=== PATIENT | female | born 1995 | race Caucasian/White ===

== ENCOUNTER 2022-08-12 01:53 | Emergency (ER) | payer OTHER ==
[~2022-08-12] VITALS: Ht 157.5 cm; Wt 97.1 kg
[2022-08-12 02:07] VITALS: BP 124/97
--- NOTE | 2022-08-12 02:07 | NUR ---
c/o 12/24 pain back pain x 1 day. pt states chronic back pain and takes gabapentin 100 mg, and naproxen 375 mg but currently ineffective. per pt, pmhx scoliosis, chronic migraines, anxiety, depression. allergy to toradol.
[2022-08-12] MEDS ORDERED: MORPHINE SULFATE 4 MG/ML SYR IM ONE (02:50)
[2022-08-12] MEDS ORDERED: NAPR-54 PO ×2 (04:26→04:34)
[2022-08-12 04:37] VITALS: BP 120/87
== END 2022-08-12 04:37 | disposition home or self-care (01) ==
LOC: EDBD 01:53 → MED 01:53
DX: M54.50 Low back pain, unspecified (principal); Z79.1 Long term (current) use of non-steroidal anti-inflammatories (NSAID); Z79.899 Other long term (current) drug therapy
CPT/HCPCS: 96372; 99283; J2270

== ENCOUNTER 2022-08-16 04:44 | Emergency (ER) | payer OTHER ==
[~2022-08-16] VITALS: Ht 157.5 cm; Wt 97.5 kg
[~2022-08-16 04:44] MED LIST: NAPR-54 PO
[2022-08-16 04:56] VITALS: BP 147/89
[2022-08-16 05:55] LABS: BASOPHILS # (AUTO) 0.1 K/uL (0.00-0.22); BASOPHILS % (AUTO) 0.7 % (0.0-2.0); EOSINOPHILS # (AUTO) 0.2 K/uL (0-0.4); EOSINOPHILS % (AUTO) 1.8 % (0.0-4.0); HEMATOCRIT 44.1 % (36-48); HEMOGLOBIN 14.5 g/dL (12.0-16.0); LYMPHOCYTES # (AUTO) 2.7 K/uL (2.5-16.5); LYMPHOCYTES % (AUTO) 30.2 % (20.5-51.1); MEAN CORPUSCULAR HEMOGLOBIN 27 pg (27-31); MEAN CORPUSCULAR HGB CONC 33 g/dL (33-37); MEAN CORPUSCULAR VOLUME 82.4 fL (80-94); MONOCYTES # (AUTO) 0.7 K/uL (0.8-1.0); MONOCYTES % (AUTO) 8.4 % (1.7-9.3); NEUTROPHILS # (AUTO) 5.2 K/uL (1.8-7.7); NEUTROPHILS % (AUTO) 58.9 % (42.2-75.2); PLATELET COUNT (AUTO) 273 K/uL (140-450); RED BLOOD CELL COUNT(AUTO) 5.35 MIL/uL (4.20-5.40); RED CELL DISTRIBUTION WIDTH 13.9 % (11.6-13.7); WHITE BLOOD COUNT (AUTO) 8.8 K/uL (4.8-10.8)
--- NOTE | 2022-08-16 06:15 | NUR ---
seen and examined by ken
[2022-08-16] MEDS ORDERED: KETOROLAC 30 MG/ML VIAL IM ONE (06:20)
[2022-08-16 06:28] LABS: ALBUMIN 3.8 g/dL (3.4-5.0); ANION GAP 12.9 (8-16); CARBON DIOXIDE 26.7 mmol/L (21-32); CREATININE 1.1 mg/dL (0.6-1.3); POTASSIUM 3.6 mmol/L (3.5-5.1); TOTAL BILIRUBIN 0.5 mg/dL (0.0-1.0)
[2022-08-16] MEDS ORDERED: CYCLOBENZAPRINE 10 MG TAB PO ONE (06:35)
[2022-08-16] MEDS ORDERED: IBUPROFEN 800 MG TAB PO ONE (06:35)
[2022-08-16] MEDS ORDERED: ACETAMINOPHEN EXTRA STRENGTH 500 MG TAB PO ONE (06:35)
--- NOTE | 2022-08-16 06:58 | NUR ---
26YR OLD FEMALE BIB FAMILY C/O CP XTODAY. PAIN UNPROVOKED / NON RADIATING PRESSURE LIKE PAIN. +SOB SP02 96% RA. DENIES N/V PT IS A&OX4 ON BEDSIDE RETAIL ATTENDANT TACHYCARDIAC 126. HX OF ANXIETY. HOB ELEVATED SKIN WARM AND DRY. KETOROLAC ANXIETY DEPRESSION
[2022-08-16] MEDS ORDERED: LORazepam 0.5 MG TAB PO ONE (07:20)
--- NOTE | 2022-08-16 07:20 | NUR ---
Report recieved from JOVANNY Mann for transfer of care.
[2022-08-16] MEDS ORDERED: CRUSHER, PILL MC ONE (07:40)
[2022-08-16] MEDS ORDERED: oxyCODONE/APAP 5/325 MG 1 TAB TAB PO ONE (08:00)
[2022-08-16] MEDS ORDERED: IBUP-2213 PO (08:31)
[2022-08-16] MEDS ORDERED: HYDR25CA1 PO (08:31)
--- NOTE | 2022-08-16 08:49 | NUR ---
PT DENIES HEART PALPITATIONS, REPORTS CHEST PRESSURE 8/10.
[2022-08-16] MEDS ORDERED: NACL 0.9% 1,000 ML IV ONE (09:20)
--- NOTE | 2022-08-16 09:34 | NUR ---
pt to ct
[2022-08-16 10:25] VITALS: BP 116/71
--- NOTE | 2022-08-16 10:25 | NUR ---
Patient discharged with v/s stable. Written and verbal after care instructions given. Patient alert, oriented and verbalized understanding of instructions. Ambulatory with steady gait. All questions addressed prior to discharge. ID band removed. Patient advised to follow up with PMD. Rx of Vistaril and Ibuprofen given. Opportunity to ask questions provided and answered. WORK NOTE HANDED TO PATIENT.
--- NOTE | 2022-08-16 10:31 | NUR ---
The patient's care was reviewed and supervised by ED Agency Nurse 7, RN, RN.
== END 2022-08-16 10:25 | disposition home or self-care (01) ==
LOC: MED 04:44
DX: M94.0 Chondrocostal junction syndrome [Tietze] (principal); F41.9 Anxiety disorder, unspecified; F32.9 Major depressive disorder, single episode, unspecified; Z79.899 Other long term (current) drug therapy; Z79.1 Long term (current) use of non-steroidal anti-inflammatories (NSAID); Z88.6 Allergy status to analgesic agent
CPT/HCPCS: 36415; 71045; 71275; 80053; 81025; 84484; 85025; 85379; 93005; 96360; 99285; J1885; Q0092; Q9967

== ENCOUNTER 2022-08-21 06:51 | Emergency (ER) | payer OTHER ==
[~2022-08-21] VITALS: Ht 157.5 cm; Wt 97.5 kg
[~2022-08-21 06:51] MED LIST changes: +HYDR25CA1 PO; +IBUP-2213 PO
[2022-08-21 07:04] VITALS: BP 130/89
--- NOTE | 2022-08-21 07:30 | NUR ---
AMB. TO BED 2 W NO DIFF
[2022-08-21] MEDS ORDERED: diphenhydrAMINE 50 MG/ML VIAL IVP ONE (07:45)
[2022-08-21] MEDS ORDERED: ACETAMINOPHEN EXTRA STRENGTH 500 MG TAB PO ONE (07:45)
[2022-08-21] MEDS ORDERED: NACL 0.9% 1,000 ML IV ONE (07:45)
[2022-08-21] MEDS ORDERED: ALUMINUM HYD/MAG/SIMETHICONE 30 ML UDC PO ONE (07:45)
[2022-08-21] MEDS ORDERED: PROCHLORPERAZINE 10 MG/2 ML VIAL IVP ONE (07:45)
[2022-08-21] MEDS ORDERED: PANTOPRAZOLE 40 MG INJ VIAL IVP ONE (07:45)
[2022-08-21] MEDS ORDERED: DEXAMETHASONE 10 MG/ML VIAL IVP ONE (07:50)
[2022-08-21] MEDS ORDERED: OMEP-303 PO (10:21)
[2022-08-21 10:33] VITALS: BP 120/66
--- NOTE | 2022-08-21 10:35 | NUR ---
Patient discharged with v/s stable. Written and verbal after care instructions given and explained. Patient alert, oriented and verbalized understanding of instructions. Ambulatory with steady gait. All questions addressed prior to discharge. ID band removed. Patient advised to follow up with PMD. Rx of Omeprazole given. Patient educated on indication of medication including possible reaction and side effects. Opportunity to ask questions provided and answered.
== END 2022-08-21 10:35 | disposition home or self-care (01) ==
LOC: MED 06:51
DX: K29.70 Gastritis, unspecified, without bleeding (principal); G43.909 Migraine, unspecified, not intractable, without status migrainosus; Z79.899 Other long term (current) drug therapy; Z88.8 Allergy status to other drugs, medicaments and biological substances
CPT/HCPCS: 81025; 96361; 96374; 96375; 99284; C9113; J0780; J1100; J1200; J7030

== ENCOUNTER 2022-09-04 02:13 | Emergency (ER) | payer OTHER ==
[~2022-09-04] VITALS: Ht 157.5 cm; Wt 104.8 kg
[~2022-09-04 02:13] MED LIST changes: +OMEP-303 PO
[2022-09-04 02:29] VITALS: BP 131/75
[2022-09-04] MEDS ORDERED: KETOROLAC 60 MG/2 ML VIAL IM ONE (02:30)
[2022-09-04] MEDS ORDERED: MORPHINE SULFATE 4 MG/ML SYR IM ONE (02:30)
[2022-09-04] MEDS ORDERED: NAPR-54 PO (05:57)
[2022-09-04 06:00] VITALS: BP 131/75
--- NOTE | 2022-09-04 06:00 | NUR ---
Patient discharged with v/s stable. Written and verbal after care instructions given and explained. New rx naprosyn. Patient verbalized understanding. Ambulatory with steady gait. All questions addressed prior to discharge. Advised to follow up with PMD.
== END 2022-09-04 06:00 | disposition home or self-care (01) ==
LOC: MED 02:13
DX: S33.5XXA Sprain of ligaments of lumbar spine, initial encounter (principal); Z79.899 Other long term (current) drug therapy; Z88.8 Allergy status to other drugs, medicaments and biological substances; X58.XXXA Exposure to other specified factors, initial encounter; Y93.89 Activity, other specified; Y92.89 Other specified places as the place of occurrence of the external cause; Y99.8 Other external cause status
CPT/HCPCS: 72131; 96372; 99284; J1885; J2270

== ENCOUNTER 2022-10-03 21:04 | Emergency (ER) | payer OTHER ==
[~2022-10-03] VITALS: Ht 157.5 cm; Wt 98.9 kg
[~2022-10-03 21:04] MED LIST changes: +FAMO-90 PO
[2022-10-03 21:16] VITALS: BP 126/73; PULSE 98; RESP 16; TEMP 97.7; O2SAT 97
--- NOTE | 2022-10-03 22:19 | NUR ---
Dr. Parada examining patient.
--- NOTE | 2022-10-03 22:28 | NUR ---
URINE SAMPLE TAKEN TO LAB
--- NOTE | 2022-10-03 22:41 | NUR ---
PT TAKEN TO RADIOLOGY
[2022-10-03] MEDS ORDERED: KETOROLAC 60 MG/2 ML VIAL IM ONE (23:00)
[2022-10-03] MEDS ORDERED: NAPR-54 PO (23:14)
[2022-10-03 23:15] VITALS: BP 119/79; PULSE 98; RESP 16; TEMP 98; O2SAT 99
--- NOTE | 2022-10-03 23:15 | NUR ---
Patient discharged with v/s stable. Written and verbal after care instructions given and explained BY DR. KING. Patient alert, oriented and verbalized understanding of instructions. Ambulatory with steady gait. All questions addressed prior to discharge. ID band removed. Patient advised to follow up with PMD. Rx of NAPROSYN given. Patient educated on indication of medication including possible reaction and side effects. Opportunity to ask questions provided and answered.
== END 2022-10-03 23:15 | disposition home or self-care (01) ==
LOC: MED 21:04
DX: S39.012A Strain of muscle, fascia and tendon of lower back, initial encounter (principal); S46.811A Strain of other muscles, fascia and tendons at shoulder and upper arm level, right arm, initial encounter; F41.9 Anxiety disorder, unspecified; F32.9 Major depressive disorder, single episode, unspecified; Z79.899 Other long term (current) drug therapy; Z88.8 Allergy status to other drugs, medicaments and biological substances; W19.XXXA Unspecified fall, initial encounter; Y93.89 Activity, other specified; Y92.89 Other specified places as the place of occurrence of the external cause; Y99.8 Other external cause status
CPT/HCPCS: 72110; 73020; 81025; 93005; 96372; 99284; J1885

== ENCOUNTER 2022-10-27 03:55 | Emergency (ER) | payer OTHER ==
[~2022-10-27] VITALS: Ht 157.5 cm; Wt 102.5 kg
[2022-10-27 04:05] VITALS: BP 106/76; PULSE 122; RESP 18; TEMP 97.7; O2SAT 98
--- NOTE | 2022-10-27 04:08 | NUR ---
TO LOBBY A/W BED AMBULATORY
[2022-10-27] MEDS ORDERED: ONDANSETRON 4 MG ODT PO ONE (04:40)
[2022-10-27 05:23] LABS: BASOPHILS % (AUTO) 0.6 % (0.0-2.0); EOSINOPHILS # (AUTO) 0.1 K/uL (0-0.4); EOSINOPHILS % (AUTO) 1.8 % (0.0-4.0); HEMATOCRIT 43.7 % (36-48); HEMOGLOBIN 14.3 g/dL (12.0-16.0); LYMPHOCYTES % (AUTO) 29.7 % (20.5-51.1); MEAN CORPUSCULAR HEMOGLOBIN 27 pg (27-31); MEAN CORPUSCULAR HGB CONC 33 g/dL (33-37); MEAN CORPUSCULAR VOLUME 82.8 fL (80-94); MONOCYTES # (AUTO) 0.6 K/uL (0.8-1.0); MONOCYTES % (AUTO) 8.4 % (1.7-9.3); NEUTROPHILS # (AUTO) 4.1 K/uL (1.8-7.7); NEUTROPHILS % (AUTO) 59.5 % (42.2-75.2); PLATELET COUNT (AUTO) 297 K/uL (140-450); RED BLOOD CELL COUNT(AUTO) 5.28 MIL/uL (4.20-5.40); RED CELL DISTRIBUTION WIDTH 14.1 % (11.6-13.7); WHITE BLOOD COUNT (AUTO) 6.9 K/uL (4.8-10.8)
[2022-10-27 05:43] LABS: APPEARANCE,URINE SL CLOUDY (CLEAR); BILIRUBIN,URINE NEGATIVE (NEGATIVE); BLOOD, URINE NEGATIVE (NEGATIVE); COLOR,URINE YELLOW (YELLOW); LEUKOCYTE ESTERASE ,URINE NEGATIVE (NEGATIVE); NITRITE, URINE NEGATIVE (NEGATIVE); UGLUCOSE NEGATIVE (NEGATIVE)
[2022-10-27] MEDS ORDERED: ONDA-188 SL (05:52)
[2022-10-27 06:34] LABS: ALBUMIN 3.7 g/dL (3.4-5.0); ANION GAP 13.7 (8-16); CARBON DIOXIDE 26.3 mmol/L (21-32); TOTAL BILIRUBIN 0.2 mg/dL (0.0-1.0)
[2022-10-27] MEDS ORDERED: CYCL-711 PO (07:09)
[2022-10-27] MEDS ORDERED: ACET-10509 PO (07:09)
[2022-10-27] MEDS ORDERED: HYDROcodone/APAP 5/325 MG 1 TAB TAB PO ONE (07:10)
[2022-10-27] MEDS ORDERED: CYCLOBENZAPRINE 10 MG TAB PO ONE (07:15)
[2022-10-27] MEDS ORDERED: ACETAMINOPHEN EXTRA STRENGTH 500 MG TAB PO ONE (07:15)
--- NOTE | 2022-10-27 07:21 | NUR ---
Pt report given to Celine PETTY. Transfer of care at this time.
--- NOTE | 2022-10-27 07:24 | NUR ---
Report revieved from Kristine, RN for transfer of care.
--- NOTE | 2022-10-27 07:43 | NUR ---
IV removed, catheter intact and site benign. Applied folded 4x4 gauze and tape to stop bleeding.
[2022-10-27 07:47] VITALS: BP 110/77; PULSE 100; RESP 20; TEMP 98.1; O2SAT 100
--- NOTE | 2022-10-27 07:47 | NUR ---
Patient states pain level is decreasing with medication. Patient discharged with v/s stable. Written and verbal after care instructions given. Patient alert, oriented and verbalized understanding of instructions. Ambulatory with steady gait. All questions addressed prior to discharge. ID band removed. Patient advised to follow up with PMD. Rx of Tylenol, Flexeril and Zofran given. Opportunity to ask questions provided and answered.
--- NOTE | 2022-10-27 07:55 | NUR ---
The patient's care was reviewed and supervised by [facility], RN.
== END 2022-10-27 07:55 | disposition home or self-care (01) ==
LOC: MED 03:55
DX: R11.2 Nausea with vomiting, unspecified (principal); R19.7 Diarrhea, unspecified; M54.50 Low back pain, unspecified; G89.29 Other chronic pain; Z79.899 Other long term (current) drug therapy; Z88.8 Allergy status to other drugs, medicaments and biological substances
CPT/HCPCS: 36415; 80053; 81003; 81025; 83690; 85025; 99284; Q0162

== ENCOUNTER 2022-11-27 02:15 | Emergency (ER) | payer OTHER ==
[~2022-11-27] VITALS: Ht 157.5 cm; Wt 103.4 kg
[~2022-11-27 02:15] MED LIST changes: +ACET-10509 PO; +CYCL-711 PO; +ONDA-188 SL
[2022-11-27 02:17] VITALS: BP 132/93; PULSE 113; RESP 16; TEMP 96; O2SAT 100
[2022-11-27] MEDS ORDERED: KETOROLAC 60 MG/2 ML VIAL IM ONE (03:00)
[2022-11-27] MEDS ORDERED: NAPR-54 PO (03:03)
[2022-11-27 03:40] VITALS: BP 132/93; PULSE 113; RESP 16; TEMP 96; O2SAT 100
== END 2022-11-27 03:40 | disposition home or self-care (01) ==
LOC: MED 02:15
DX: G89.29 Other chronic pain (principal); M54.9 Dorsalgia, unspecified; Z76.0 Encounter for issue of repeat prescription; Z79.899 Other long term (current) drug therapy; Z79.1 Long term (current) use of non-steroidal anti-inflammatories (NSAID); Z88.6 Allergy status to analgesic agent
CPT/HCPCS: 96372; 99283; J1885

== ENCOUNTER 2023-01-12 11:43 | Emergency (ER) | payer OTHER ==
[~2023-01-12] VITALS: Ht 157.5 cm; Wt 98.4 kg
[2023-01-12 12:17] VITALS: BP 116/88; PULSE 98; RESP 18; TEMP 98.8; O2SAT 97
[2023-01-12 14:18] VITALS: BP 114/86; PULSE 98; RESP 18; TEMP 98.5; O2SAT 97
[2023-01-12] MEDS ORDERED: LORazepam 1 MG TAB PO ONE (14:35)
== END 2023-01-12 14:57 | disposition home or self-care (01) ==
LOC: MED 11:43
DX: F41.9 Anxiety disorder, unspecified (principal); F32.9 Major depressive disorder, single episode, unspecified; Z79.899 Other long term (current) drug therapy; Z88.8 Allergy status to other drugs, medicaments and biological substances
CPT/HCPCS: 93005; 99283

== ENCOUNTER 2023-02-17 17:39 | Emergency (ER) | payer OTHER ==
[~2023-02-17] VITALS: Ht 162.6 cm; Wt 96.6 kg
[2023-02-17 17:48] VITALS: BP 120/75; PULSE 96; RESP 18; TEMP 98; O2SAT 99
[2023-02-17] MEDS ORDERED: CYCLOBENZAPRINE 10 MG TAB PO ONE (17:55)
[2023-02-17] MEDS ORDERED: LIDOCAINE/PRILOCAINE 2.5% 5 GM TUBE TP ONE (17:55)
[2023-02-17] MEDS ORDERED: HYDR-5080 PO ×2 (19:17→20:34)
== END 2023-02-17 19:30 | disposition home or self-care (01) ==
LOC: MED 17:39
DX: M54.50 Low back pain, unspecified (principal); Z79.1 Long term (current) use of non-steroidal anti-inflammatories (NSAID); Z79.899 Other long term (current) drug therapy
CPT/HCPCS: 81025; 99283

== ENCOUNTER 2023-03-23 18:31 | Emergency (ER) | payer OTHER ==
[~2023-03-23] VITALS: Ht 157.5 cm; Wt 108.0 kg
[~2023-03-23 18:31] MED LIST changes: +HYDR-5080 PO
[2023-03-23 20:21] VITALS: PULSE 95; RESP 16; TEMP 98.2; O2SAT 96
[2023-03-23 21:48] LABS: BILIRUBIN,URINE NEGATIVE (NEGATIVE); BLOOD, URINE NEGATIVE (NEGATIVE); COLOR,URINE YELLOW (YELLOW); LEUKOCYTE ESTERASE ,URINE TRACE (NEGATIVE); NITRITE, URINE NEGATIVE (NEGATIVE); PROTEIN,URINE 1+ (NEGATIVE); UGLUCOSE NEGATIVE (NEGATIVE); UROBILINOGEN,URINE 0.2 EU/dL (0.2 - 1)
[2023-03-23 21:53] LABS: BASOPHILS % (AUTO) 0.3 % (0.0-2.0); EOSINOPHILS % (AUTO) 0.4 % (0.0-4.0); HEMOGLOBIN 13.6 g/dL (12.0-16.0); LYMPHOCYTES % (AUTO) 17.8 % (20.5-51.1); MEAN CORPUSCULAR HEMOGLOBIN 27 pg (27-31); MEAN CORPUSCULAR HGB CONC 32 g/dL (33-37); MEAN CORPUSCULAR VOLUME 82.3 fL (80-94); MONOCYTES # (AUTO) 1.1 K/uL (0.8-1.0); MONOCYTES % (AUTO) 9.2 % (1.7-9.3); NEUTROPHILS # (AUTO) 8.3 K/uL (1.8-7.7); NEUTROPHILS % (AUTO) 72.3 % (42.2-75.2); PLATELET COUNT (AUTO) 293 K/uL (140-450); RED CELL DISTRIBUTION WIDTH 15.3 % (11.6-13.7); WHITE BLOOD COUNT (AUTO) 11.5 K/uL (4.8-10.8)
[2023-03-23 21:58] LABS: APPEARANCE,URINE TURBID (CLEAR)
[2023-03-23 21:59] LABS: BACTERIA,URINE >30 (MANY) /HPF (None Seen); MUCUS,URINE 1+ /LPF (None Seen); RBC,URINE 0-5 /HPF (0-5); WBC,URINE 0-5 /HPF (0-5)
[2023-03-23 22:11] LABS: ALBUMIN 3.8 g/dL (3.4-5.0); ANION GAP 12.2 (8-16); CALCIUM 9.2 mg/dL (8.5-10.1); CARBON DIOXIDE 26.6 mmol/L (21-32); CREATININE 1.1 mg/dL (0.6-1.3); POTASSIUM 3.8 mmol/L (3.5-5.1); TOTAL BILIRUBIN 0.7 mg/dL (0.0-1.0); TOTAL PROTEIN, SERUM 8.6 g/dL (6.4-8.2)
[2023-03-23] MEDS ORDERED: ONDANSETRON 4 MG/2 ML VIAL IVP ONE (22:25)
[2023-03-23] MEDS ORDERED: NACL 0.9% 1,000 ML IV ONE (22:25)
[2023-03-23] MEDS ORDERED: KETOROLAC 30 MG/ML VIAL IVP ONE (22:25)
[2023-03-23 23:32] VITALS: PULSE 82; RESP 20; TEMP 98; O2SAT 100
[2023-03-23] MEDS ORDERED: ONDA-188 PO (23:44)
[2023-03-23] MEDS ORDERED: CIPR500T4 PO (23:44)
[2023-03-23] MEDS ORDERED: LOPE1TAB14 PO (23:44)
[2023-03-23] MEDS ORDERED: BISM262T28 PO (23:44)
== END 2023-03-23 23:58 | disposition home or self-care (01) ==
LOC: MED 18:31
DX: N39.0 Urinary tract infection, site not specified (principal); A08.4 Viral intestinal infection, unspecified; F32.A Depression, unspecified; F41.9 Anxiety disorder, unspecified; Z79.1 Long term (current) use of non-steroidal anti-inflammatories (NSAID); Z79.899 Other long term (current) drug therapy
CPT/HCPCS: 36415; 80053; 81001; 81025; 83690; 85025; 87086; 96361; 96374; 96375; 99284; J1885; J2405; J7030

== ENCOUNTER 2023-05-31 20:48 | Emergency (ER) | payer OTHER ==
[~2023-05-31] VITALS: Ht 157.5 cm; Wt 103.4 kg
[~2023-05-31 20:48] MED LIST changes: +BISM262T28 PO; +CIPR500T4 PO; +LOPE1TAB14 PO; +ONDA-188 PO
[2023-05-31 21:14] VITALS: BP 120/83; PULSE 91; RESP 16; TEMP 97.8; O2SAT 98
[2023-06-01 00:20] LABS: APPEARANCE,URINE CLEAR (CLEAR); BILIRUBIN,URINE NEGATIVE (NEGATIVE); BLOOD, URINE NEGATIVE (NEGATIVE); COLOR,URINE YELLOW (YELLOW); LEUKOCYTE ESTERASE ,URINE NEGATIVE (NEGATIVE); NITRITE, URINE NEGATIVE (NEGATIVE); PH,URINE 7.5 (5.0-9.0); PROTEIN,URINE NEGATIVE (NEGATIVE); UGLUCOSE NEGATIVE (NEGATIVE); UROBILINOGEN,URINE 0.2 EU/dL (0.2 - 1)
[2023-06-01] MEDS: HYDROcodone/APAP 5/325 MG 1 TAB TAB PO ONE (00:44)
== END 2023-06-01 00:46 | disposition home or self-care (01) ==
LOC: MED 20:48
DX: G89.29 Other chronic pain (principal); M54.50 Low back pain, unspecified; M94.0 Chondrocostal junction syndrome [Tietze]; Z79.899 Other long term (current) drug therapy; Z79.1 Long term (current) use of non-steroidal anti-inflammatories (NSAID); Z88.6 Allergy status to analgesic agent
CPT/HCPCS: 81003; 93005; 99284

== ENCOUNTER 2023-08-29 17:54 | Emergency (ER) | payer OTHER ==
[~2023-08-29] VITALS: Ht 157.5 cm; Wt 108.9 kg
[~2023-08-29 17:54] MED LIST changes: +NAPR-337 PO; -NAPR-54 PO
[2023-08-29 18:08] VITALS: BP 114/69; PULSE 118; RESP 18; TEMP 97.9; O2SAT 98
[2023-08-29 18:39] LABS: APPEARANCE,URINE CLEAR (CLEAR); BILIRUBIN,URINE NEGATIVE (NEGATIVE); BLOOD, URINE NEGATIVE (NEGATIVE); COLOR,URINE YELLOW (YELLOW); LEUKOCYTE ESTERASE ,URINE NEGATIVE (NEGATIVE); NITRITE, URINE NEGATIVE (NEGATIVE); PROTEIN,URINE NEGATIVE (NEGATIVE); UGLUCOSE NEGATIVE (NEGATIVE); UROBILINOGEN,URINE 0.2 EU/dL (0.2 - 1)
[2023-08-29] MEDS: MORPHINE SULFATE 4 MG/ML SYR IM ONE (18:44)
[2023-08-29 19:25] VITALS: PULSE 99
== END 2023-08-29 19:25 | disposition home or self-care (01) ==
LOC: MED 17:54
DX: M54.50 Low back pain, unspecified (principal); Z79.1 Long term (current) use of non-steroidal anti-inflammatories (NSAID); Z79.899 Other long term (current) drug therapy; Z88.8 Allergy status to other drugs, medicaments and biological substances
CPT/HCPCS: 81003; 81025; 96372; 99283; J2270